=== PATIENT | male | born 2005 | race Caucasian/White ===

== ENCOUNTER 2024-05-09 22:54 | Emergency (ER) | payer BC ==
[~2024-05-09] VITALS: Ht 167.6 cm; Wt 59.1 kg
[2024-05-09] MEDS ORDERED: Sulfamethoxazole/Trimethoprim 800-160 MG TAB PO ONE (23:45)
[2024-05-10] MEDS ORDERED: BACTRIM DS TAB1 EACH PO (00:02)
[2024-05-10 00:13] VITALS: BP 112/78
== END 2024-05-10 00:14 | disposition home or self-care (01) ==
LOC: ED 22:54 → EDBD 22:54 → ED 22:55
DX: L73.2 Hidradenitis suppurativa (principal)